=== PATIENT | male | born 1935 | race Caucasian/White ===

== ENCOUNTER 2016-11-26 16:15 | Inpatient (IN) | payer BC ==
[~2016-11-26] VITALS: Ht 160 cm; Wt 47.0 kg
[2016-11-26 18:18] LABS: ABNORMAL IP MESSAGE 1; BASOPHIL # 0.1 10^3/ul (0.0-0.1); BASOPHILS % 0.3 % (0.0-2.0); HEMATOCRIT 45.7 % (42.0-52.0); HEMOGLOBIN 15.1 g/dl (14.0-18.0); LYMPHOCYTES # 2.8 10^3/ul (0.8-2.9); LYMPHOCYTES % 16.8 % (15.0-51.0); MEAN CORPUSCULAR HEMOGLOBIN 28.5 pg (29.0-33.0); MEAN CORPUSCULAR VOLUME 86.4 fl (82.0-101.0); MEAN PLATELET VOLUME 10.5 fl (7.4-10.4); MONOCYTE # 1.8 10^3/ul (0.3-0.9); MONOCYTES % 10.5 % (0.0-11.0); NEUTROPHILS % 71.9 % (39.0-77.0); PLATELET COUNT 167 10^3/UL (140-415); POSITIVE DIFF @See below; RED BLOOD COUNT 5.29 10^6/ul (4.70-6.10); RED CELL DISTRIBUTION WIDTH 14.2 % (11.5-14.5); WHITE BLOOD COUNT 16.9 10^3/ul (4.8-10.8)
[2016-11-26 18:33] LABS: INR 1.03; PROTIME 13.5 Sec (12.2-14.2); PT RATIO 1.1
[2016-11-26 18:34] LABS: PARTIAL THROMBOPLASTIN TIME 34.5 Sec (25.0-35.0)
[2016-11-26] MEDS ORDERED: SODIUM CHLORIDE 0.9% 1L BAG IV* STA (18:38)
[2016-11-26] MEDS ORDERED: NIFE60TA7 PO (18:43)
[2016-11-26] MEDS ORDERED: FOLI-49 PO (18:43)
[2016-11-26] MEDS ORDERED: CHOL100062 PO (18:44)
[2016-11-26] MEDS ORDERED: HYDR25TA6 PO (18:44)
[2016-11-26 18:46] LABS: ALBUMIN 4.8 g/dl (3.3-4.9); ALBUMIN/GLOBULIN RATIO 1.29; BILIRUBIN,INDIRECT 2.6 mg/dl (0-1.1); BILIRUBIN,TOTAL 2.6 mg/dl (0.2-1.3); CALCIUM 9.2 mg/dl (8.4-10.2); CREATININE 1.71 mg/dl (0.61-1.24); POTASSIUM 3.2 mmol/L (3.5-5.1); TOTAL PROTEIN 8.5 g/dl (6.1-8.1)
[2016-11-26 18:58] LABS: TROPONIN-I 0.121 ng/ml (0.00-0.12)
[2016-11-26] MEDS ORDERED: POTASSIUM CHLORIDE 250 ML IVPB ONE (19:00)
[2016-11-26] MEDS ORDERED: ACETAMINOPHEN 500 MG TAB PO STA (19:02)
--- NOTE | 2016-11-26 19:02 | RADRPT ---
PROCEDURE: XR Chest. CLINICAL INDICATION: Pain . TECHNIQUE: Single frontal chest x-ray. COMPARISON: None. FINDINGS: The lungs are clear of acute infiltrates, edema, effusions, or masses. Calcific atherosclerosis of t he aorta is present.. The cardiomediastinal silhouette is unremarkable. The osseous structures are intact. IMPRESSION: No acute cardiopulmonary disease. RPTAT: JJ .Ludwig Perez MD, MD Date Time Electronically viewed and signed by .Ludwig Perez MD, MD on 11/26/2016 19:02 .L/
[2016-11-26 20:30] LABS: ADD UMIC YES; UR ASCORBIC ACID NEGATIVE (NEGATIVE); UR BACTERIA FEW /HPF (NONE SEEN); UR BILIRUBIN (Dip) NEGATIVE (NEGATIVE); UR BLOOD (Dip) 3+ mg/dL (NEGATIVE); UR CLARITY CLEAR (CLEAR); UR COLOR YELLOW (YELLOW); UR GLUCOSE (Dip) NEGATIVE (NEGATIVE); UR KETONES (Dip) NEGATIVE (NEGATIVE); UR LEUKOCYTE ESTERASE (Dip) NEGATIVE Leu/ul (NEGATIVE); UR MUCUS FEW /HPF (NONE SEEN); UR NITRITE (Dip) NEGATIVE (NEGATIVE); UR RBC 13 /HPF (0-5); UR SPECIFIC GRAVITY (Dip) 1.021 (1.003-1.030); UR TOTAL PROTEIN (Dip) 2+ mg/dl (NEGATIVE); UR UROBILINOGEN (Dip) NEGATIVE (NEGATIVE)
[2016-11-26] MEDS ORDERED: CEFTRIAXONE 1 GM/50 ML (PMX) 50 ML IVPB ONE (20:30)
--- NOTE | 2016-11-26 22:14 | RADRPT ---
PROCEDURE: CT Abdomen and Pelvis without contrast. CLINICAL INDICATION: Abdominal pain, fever. TECHNIQUE: A CT scan of the abdomen and pelvis was performed without intravenous contrast. Irby l and sagittal reformatted images were generated. Images were reviewed on a high-resolution PACS wor kstation. CTDIvol: 8.89 mGy. DLP: 454.50 mGy-cm. One or more of the following dose reduction techniques were used: - Automated exposure control. - Adjustment of the mA and/or kV according to patient size. - Use of iterative reconstruction technique. COMPARISON: None. FINDINGS: There are mild atelectatic changes in the lower lungs. Evaluation of the abdominal and pelvic viscera is limited by the lack of oral and intravenous contra st. There is a 2.4 cm cyst in the right hepatic lobe. The gallbladder is normal in appearance. The commo n bile duct is not dilated. The spleen is not enlarged. No pancreatic lesion is identified and there is no pancreatic ductal dilatation. The adrenal glands are unremarkable. The kidneys are normal in size. There is no perinephric fat stranding. No hydronephrosis is seen. No urinary stone is identified. There are cysts in both kidneys measuring up to 10.8 cm on the right. The small and large bowel are normal in caliber. There is no bowel wall thickening. The appendix is normal. The urinary bladder is unremarkable. The pelvic organs are within normal limits. No lymphadenopathy is identified. There is no ascites. No pneumoperitoneum is seen. There are mild a rterial calcifications. No suspicious osseous lesion is idenitified. There are bilateral L5 pars defects and grade 2-3 L5 an terolisthesis. Severe spinal canal stenosis and moderate to severe bilateral neural foraminal narrow ing are noted at L5-S1. IMPRESSION: 1. No inflammation, mass, or lymphadenopathy. 2. Normal appendix. 3. No obstructive uropathy or urinary stone. 4. Mild atherosclerotic arterial calcifications. 5. 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 Severe spinal canal stenosis and mod erate to severe bilateral neural foraminal narrowing are noted at L5-S1. RPTAT: HTAR .Leroy Rai MD, MD Date Time Electronically viewed and signed by .Leroy Rai MD, MD on 11/26/2016 22:14 .R/
[2016-11-26] MEDS ORDERED: SOD CHLORIDE 0.9% 1,000 ML IV SCH (22:15)
--- NOTE | 2016-11-26 22:21 | ERA ---
ER Documentation Chief Complaint Date/Time DATE: 11/26/16 TIME: 22:17 Chief Complaint generalized weakness x 2 days; decreased in appetite; no n/v/d complaint HPI This is a 81-year-old male who presents to the emergency room with his daughter for evaluation of generalized weakness. According to the daughter was giving the majority history this patient has had generalized weakness which is gotten progressively worse over the past 3 days. She states that he did feel hot today and he has had a decreased appetite. The patient denies any abdominal pain or chest pain or cough. Patient's daughter denies any aggravating or relieving factors for her symptoms. She brought him in for further evaluation. ROS All systems reviewed and are negative except as per history of present illness. Medications Home Meds Reported Medications Cholecalciferol* (Vitamin D3*) 1,000 Unit Tablet, 1000 UNIT PO DAILY, TAB 11/26/16 Hydrochlorothiazide* (Hydrochlorothiazide*) Unknown Strength Tab, 1 TAB PO DAILY , #30 TAB 11/26/16 Nifedipine* (Nifedipine ER*) 60 Mg Tablet.sa, 60 MG PO DAILY, TAB.SA 11/26/16 Folic Acid* (Folic Acid*) Unknown Strength Tablet, 1 TAB PO BID, TAB 11/26/16 Allergies Allergies: Coded Allergies: No Known Allergy (Unverified , 11/26/16) PMhx/Soc Medical and Surgical Hx: pt denies Surgical Hx Smoking Status: Former smoker Physical Exam Vitals Vital Signs Date Time Temp Pulse Resp B/P Pulse Ox O2 Delivery O2 Flow Rate FiO2 11/26/16 18:55 102.6 81 20 100/56 93 Room Air 11/26/16 18:00 Nasal Cannula 2 11/26/16 16:19 98.8 76 20 92/52 96 Physical Exam INITIAL VITAL SIGNS: Reviewed by me GENERAL: The patient is frail-appearing elderly gentleman, no acute distress HEENT: Dry mucous membranes, pupils equal, round, and reactive to light. EOMI. There is no scleral icterus. NECK: C-spine is soft and supple, there is no meningismus. There is no cervical lymphadenopathy. LUNGS: Clear to auscultation bilaterally. There are no rales, wheezes or rhonchi. HEART: Regular rate and rhythm, no murmurs, clicks, rubs or gallops. ABDOMEN: Soft, non-tender, non-distended. There are bowel sounds in all four quadrants. No rebound or guarding. EXTREMITIES: There is no peripheral cyanosis or edema. No focal swelling or erythema. NEUROLOGICAL: The patient moves all four extremities with 5/5 strength. Cranial nerves II - XII are intact. Normal gait. Alert and oriented SKIN: There is no apparent rash or petechiae. HEME/LYMPHATIC: There is no evidence of excessive bruising or lymphedema. PSYCHIATRIC: The patient does not appear anxious or depressed. Result Diagram: 11/26/16180911/26/161809 Results 24 hrs Laboratory Tests Test 11/26/16 18:10 11/26/16 19:30 11/26/16 19:45 11/26/16 21:34 White Blood Count 16.910^3/ul Red Blood Count 5.2910^6/ul Hemoglobin 15.1g/dl Hematocrit 45.7% Mean Corpuscular Volume 86.4fl Mean Corpuscular Hemoglobin 28.5pg Mean Corpuscular Hemoglobin Concent 33.0g/dl Red Cell Distribution Width 14.2% Platelet Count 65075^3/UL Mean Platelet Volume 10.5fl Neutrophils % 71.9% Lymphocytes % 16.8% Monocytes % 10.5% Eosinophils % 0.0% Basophils % 0.3% Nucleated Red Blood Cells % 0.0/100WBC Neutrophils # (Manual) 12.110^3/ul Lymphocytes # 2.810^3/ul Monocytes # 1.810^3/ul Eosinophils # 0.010^3/ul Basophils # 0.110^3/ul Nucleated Red Blood Cells # 0.010^3/ul Prothrombin Time 13.5Sec Prothrombin Time Ratio 1.1 INR International Normalized Ratio 1.03 Activated Partial Thromboplast Time 34.5Sec Sodium Level 139mmol/L Potassium Level 3.2mmol/L Chloride Level 91mmol/L Carbon Dioxide Level 33mmol/L Anion Gap 18 Blood Urea Nitrogen 34mg/dl Creatinine 1.71mg/dl Glucose Level 124mg/dl Calcium Level 9.2mg/dl Total Bilirubin 2.6mg/dl Direct Bilirubin 0.00mg/dl Indirect Bilirubin 2.6mg/dl Aspartate Amino Transf (AST/SGOT) 77IU/L Alanine Aminotransferase (ALT/SGPT) 43IU/L Alkaline Phosphatase 98IU/L Troponin I 0.121ng/ml Total Protein 8.5g/dl Albumin 4.8g/dl Globulin 3.70g/dl Albumin/Globulin Ratio 1.29 Lipase 135U/L Urine Color YELLOW Urine Clarity CLEAR Urine pH 5.0 Urine Specific [place] 1.021 Urine Ketones NEGATIVEmg/dL Urine Nitrite NEGATIVEmg/dL Urine Bilirubin NEGATIVEmg/dL Urine Urobilinogen NEGATIVEmg/dL Urine Leukocyte Esterase NEGATIVELeu/ul Urine Microscopic RBC 13/HPF Urine Microscopic WBC 2/HPF Urine Bacteria FEW/HPF Urine Mucus FEW/HPF Urine Hemoglobin 3+mg/dL Urine Glucose NEGATIVEmg/dL Urine Total Protein 2+mg/dl Lactic Acid Level 3.1mmol/L 1.4mmol/L Current Medications Medications (Trade) Dose Ordered Sig/Christina Route PRN Reason Start Time Stop Time Status Last Admin Dose Admin Sodium Chloride 2110 ml 2,110 ml BOLUS OVER 2 HOURS STAT IV* 11/26/16 18:38 11/26/16 18:41 DC 11/26/16 18:53 Potassium Chloride (KCl 40 MEQ/250 ML NS) 250 ml @ 62.5 mls/hr ONCE ONCE IVPB 11/26/16 19:00 11/26/16 22:59 Acetaminophen 1000 mg 1,000 mg ONCE STAT PO 11/26/16 19:02 11/26/16 19:03 DC 11/26/16 19:27 Ceftriaxone Sodium 50 ml @ 100 mls/hr ONCE ONCE IVPB 11/26/16 20:30 11/26/16 20:59 DC 11/26/16 20:30 Sodium Chloride (NS) 1,000 ml @ 80 mls/hr [id number] IV 11/26/16 22:15 11/27/16 10:44 Ondansetron HCl (Zofran Inj) 4 mg BRIDGE ORDER PRN IV NAUSEA AND/OR VOMITING 11/26/16 22:30 11/27/16 22:29 Acetaminophen (Tylenol Tab) 650 mg ER BRIDGE PRN PO MILD PAIN/FEVER 11/26/16 22:30 11/27/16 22:29 Procedures/MDM EKG: Rate/Rhythm: [Normal Sinus Rhythm] QRS, ST, T-waves: [No changes consistent w/ acute ischemia] Impression: [No evidence of ischemia or arrhythmia] Chest X-ray 1V Interpreted by me: Soft Tissue: No acute abnormalities Bones: No acute abnormalities Mediastinum/Cardiac Silhouette/Lungs: [No acute abnormalities] CT abdomen pelvis without contrast: No acute process This 81-year-old male presents to the emergency room for evaluation of generalized weakness. When I evaluated this patient he was febrile, and did appear to have a blood pressure of 88/61. Septic workup was initiated on this patient. He was given greater than 30 cc/kg of IV normal saline. His lab work does demonstrate a leukocytosis and lactic acid of 3. The patient's chest x- ray is clear, CT of the abdomen and pelvis is also without any acute process in his urinalysis does not reveal a gross urinary tract infection at this time. The patient was given 1 g Rocephin after blood and urine cultures were obtained. His repeat lactic acid is 1.8 and his repeat blood pressure is 133/ 61. He is afebrile after receiving Tylenol. This patient does meet SIRS criteria and given his age the patient will be placed in for admission at this time on the [facility] floor. His potassium was slightly low at 3.2 and he was given 40 mEq of potassium IV. He will be admitted under the care of Dr. Waterman Critical Care: Excluding all billable procedures Time: 43 minutes Treatments/Evaluations: Close monitoring and treatment of unstable vital signs, cardiorespiratory, and neurologic status, while maintaining tight balance of fluid, respiratory, and cardiac interventions. Departure Diagnosis: Primary Impression: SIRS (systemic inflammatory response syndrome) Additional Impressions: Generalized weakness Hypokalemia Mild dehydration Fever Condition: Fair LONDON COOK DO Nov 26, 2016 22:21
[2016-11-26] MEDS ORDERED: ACETAMINOPHEN 325 MG TAB PO PRN (22:30)
[2016-11-26] MEDS ORDERED: ONDANSETRON 4 MG INJ IV PRN (22:30)
[2016-11-27 01:15] LABS: INR 1.18; PROTIME 15.1 Sec (12.2-14.2); PT RATIO 1.2
[2016-11-27 01:16] LABS: PARTIAL THROMBOPLASTIN TIME 32.6 Sec (25.0-35.0)
[2016-11-27 04:00] VITALS: TEMP 101.9
[2016-11-27 05:05] VITALS: Ht 160 cm; Wt 47.0 kg
[2016-11-27] MEDS ORDERED: DEXTROSE 5%-0.45% NACL 1,000 ML IV SCH (05:30)
[2016-11-27] MEDS ORDERED: ONDANSETRON 4 MG INJ IV PRN (05:30)
[2016-11-27 05:59] LABS: BASOPHILS % 0.2 % (0.0-2.0); HEMOGLOBIN 12.9 g/dl (14.0-18.0); LYMPHOCYTES # 1.8 10^3/ul (0.8-2.9); MEAN CORPUSCULAR HEMOGLOBIN 28.7 pg (29.0-33.0); MEAN CORPUSCULAR HGB CONC 33.1 g/dl (32.0-37.0); MEAN CORPUSCULAR VOLUME 86.9 fl (82.0-101.0); MEAN PLATELET VOLUME 11.1 fl (7.4-10.4); MONOCYTE # 1.1 10^3/ul (0.3-0.9); MONOCYTES % 6.6 % (0.0-11.0); NEUTROPHILS % 81.6 % (39.0-77.0); PLATELET COUNT 151 10^3/UL (140-415); RED BLOOD COUNT 4.49 10^6/ul (4.70-6.10); RED CELL DISTRIBUTION WIDTH 14.1 % (11.5-14.5); WHITE BLOOD COUNT 16.2 10^3/ul (4.8-10.8)
[2016-11-27] MEDS ORDERED: LEVOFLOXACIN 500MG/D5W (PMX) 100 ML IVPB ONE (06:00)
[2016-11-27 06:26] LABS: ALBUMIN 3.5 g/dl (3.3-4.9); ALBUMIN/GLOBULIN RATIO 1.2; CALCIUM 8.3 mg/dl (8.4-10.2); CREATININE 1.22 mg/dl (0.61-1.24); POTASSIUM 3.3 mmol/L (3.5-5.1); TOTAL PROTEIN 6.4 g/dl (6.1-8.1)
[2016-11-27 06:46] VITALS: BP 105/56; RESP 20
[2016-11-27 08:14] VITALS: BP 114/58; RESP 16
[2016-11-27] MEDS: ACETAMINOPHEN 325 MG TAB PO PRN ×3 (08:19→23:52)
[2016-11-27] MEDS ORDERED: POTASSIUM CHLORIDE (SR) 20 MEQ TAB PO STA (08:51)
--- NOTE | 2016-11-27 09:00 | HP ---
Date/Time of Note Date/Time of Note DATE: 11/27/16 TIME: 08:51 Assessment/Plan VTE Prophylaxis VTE Prophylaxis Intervention: SCD's Lines/Catheters IV Catheter Type (from Nrs): Peripheral IV Assessment/Plan Assessment/Plan 1. SIRS, unknown source of infection -Urinalysis and a chest x-ray nondiagnostic -will empirically be started on IV antibiotic -Follow-up on the urine culture and blood culture 2. Generalized weakness and decreased appetite -Dietary consult -PT evaluation -Speech/swallow eval especially given patient being edentulous 3. Positive troponin -First troponin was slightly elevated but the second one has normalized. This is due to infectious process. See #1 -will send additional troponins. No chest pain -will order 2D echo, which will also be helpful, not just because his troponin is elevated but also since he will be receiving IV fluids given his septic presentation 4. Presumed AK I -Likely prerenal given poor p.o. intake -Continue IV fluid -Renal ultrasound and nephrology consult as needed 5. Hypokalemia -Replete HPI/ROS Admit Date/Time Admit Date/Time Nov 26, 2016 at 22:16 ROS This is an 81-year-old male with a history of hypertension was brought to the ER for generalized weakness. I tried to talk to patient through loan teller and I am not able to get meaningful information from him. He is also edentulous which makes it difficult to understand him. He did however stated he has headache. Reportedly patient was decreased appetite and on evaluation easily noticeable that he has muscle loss and he is somehow cachectic. When he presented to the ER he was febrile with a temperature as high as 102.6 with labs showing a WBC of 16,000. Initial urinalysis without UTI and a chest x -ray with no active disease. PMH/Family/Social Social History Smoking Status: Former smoker Exam/Review of Systems Vital Signs Vitals Vital Signs Date Time Temp Pulse Resp B/P Pulse Ox O2 Delivery O2 Flow Rate FiO2 11/27/16 08:14 101.6 73 16 114/58 91 11/27/16 05:05 Nasal Cannula 2.0 Intake and Output 11/26/16 11/26/16 11/27/16 15:00 23:00 07:00 Intake Total 2160 ml 890 ml Balance 2160 ml 890 ml Exam Constitutional: other (Appears somehow weak. He is edentulous and difficult to understand) Head: atraumatic, normocephalic Eyes: EOMI, PERRL Respiratory: clear to auscultation, normal air movement Cardiovascular: nl pulses, regular rate and rhythm Gastrointestinal: non-tender, soft Musculoskeletal: other (Muscle wasting) Extremities: normal pulses Labs Result Diagram: 11/27/16 0534 11/27/16 0534 Medications Medications Current Medications Sodium Chloride (NS) 1,000 ml @ 80 mls/hr [id number] IV Last administered on 11/26 23:11; Admin Dose 80 MLS/HR; Start 11/26/16 at 22:15; Stop 11/27/16 at 10: 44 Ondansetron HCl 4 mg 4 mg Q6H PRN IV NAUSEA AND/OR VOMITING; Start 11/27/16 at 05:30 Dextrose/Sodium Chloride (D5-1/2ns) 1,000 ml @ 100 mls/hr Q10H IV Last administered on 11/27/16 06:13; Admin Dose 100 MLS/HR; Start 11/27/16 at 05:30 Acetaminophen 650 mg 650 mg Q6H PRN PO PAIN AND OR ELEVATED TEMP Last administered on 11/27/16 08:19; Admin Dose 650 MG; Start 11/27/16 at 06:00 Levofloxacin/ Dextrose (Levaquin 250 Mg/ D5W 50 ml (Pmx)) 50 ml @ 50 mls/hr Q24H IVPB ; Start 11/28/16 at 06:00 NIALL GARCIA MD Nov 27, 2016 09:00
[2016-11-27] MEDS: D5W-0.45 NACL + KCL 20 MEQ 1,000 ML IV SCH ×2 (13:02→23:40)
[2016-11-27 14:00] VITALS: BP 156/64; RESP 18
--- NOTE | 2016-11-27 16:19 | RADRPT ---
Echocardiogram Report Patient Name: ALESSANDRO VARGAS Gender: Male Date: 1935 Study Date: 27-Nov-2016 Networking Specialist: Fabiola [facility] Location: [facility] Ref. Physician: NIALL GARCIA Quality: Technically Difficult Study Procedures: Transthoracic echocardiogram with complete 2D, M-Mode, and doppler examination. Indications: Positive Troponin. 2D/M Mode Doppler Measurement Value Normal Ranges Measurement Value Normal Ranges LVIDd 2D 4.5 3.5 - 5.6 cm AV Peak Jarad 1.6 m/sec LVIDs 2D 3.1 2.1 - 4.1 cm AV Peak PG 10.0 mmHg FS 2D 32.2 % AI Peak PG 38.0 mmHg LVPWd 2D 1.0 0.6 - 1.1 cm AI Peak Jarad 3.1 m/sec IVSd 2D 1.1 0.6 - 1.1 cm AI PHT 548.0 msec IVS/LVPW 2D 1.1 LVOT Peak Jarad 1.3 m/sec AoR Diam 2D 2.7 2.0 - 3.7 cm LVOT Peak PG 7.0 mmHg LA/Ao 2D 1 0 - 1 MV E Peak Jarad 0.9 m/sec EDV 2D 93.0 cm3 MV A Peak Jarad 0.7 m/sec ESV 2D 28.9 cm3 MV E/A 1.3 LA Dimen 2D 3.6 2.3 - 4.0 cm MV Decel Time 151 msec MV E/A 1.3 TR Peak Jarad 3.0 m/sec TR Peak PG 37.0 mmHg RVSP 45.0 mmHg Findings Left Ventricle: Normal left ventricular systolic function. Normal left ventricular cavity size. Normal left ventricular wall thickness. Ejection fraction is visually estimated at 6065 %. Tissue Doppler/Mitral Doppler indices are consistent with impaired relaxation (Stage I diastolic dysfunction). Right Ventricle: Normal right ventricular size. Normal right ventricular systolic function. Left Atrium: The left atrium is normal in size. Right Atrium: The right atrium is normal in size. Mitral Valve: Mild mitral leaflet calcification. Mild mitral annular calcification. Mild mitral valve regurgitation. Aortic Valve: Aortic cusps appear mildly calcified. Trace aortic valve regurgitation. Tricuspid Valve: Normal appearance of the tricuspid valve. Estimated peak PA systolic pressure 45 mmHg. There is mild tricuspid regurgitation. Pulmonic Valve: Pulmonic valve not well visualized. There is mild pulmonic regurgitation. Pericardium: Normal pericardium with no significant pericardial effusion. Aorta: Normal aortic root. IVC: Normal size and poor respiratory collapse consistent with elevated right atrial pressure. Conclusions 1.The left ventricle is normal in size and systolic function. 2.Estimated left ventricular ejection fraction of 60-65%. 3.Grade 1 diastolic dysfunction. Electronically Signed By: Isaiah Altman 27-Nov-2016 16:19:15 -0700 Patient Name: ALESSANDRO VARGAS Study Date: 27-Nov-2016 [id number]
[2016-11-27 20:22] VITALS: BP 146/67; RESP 20
[2016-11-28 02:25] VITALS: BP 121/65; RESP 20
[2016-11-28 05:25] LABS: BASOPHILS % 0.2 % (0.0-2.0); HEMATOCRIT 37.8 % (42.0-52.0); HEMOGLOBIN 12.7 g/dl (14.0-18.0); LYMPHOCYTES # 2.3 10^3/ul (0.8-2.9); LYMPHOCYTES % 19.5 % (15.0-51.0); MEAN CORPUSCULAR HEMOGLOBIN 29.3 pg (29.0-33.0); MEAN CORPUSCULAR HGB CONC 33.6 g/dl (32.0-37.0); MEAN CORPUSCULAR VOLUME 87.1 fl (82.0-101.0); MEAN PLATELET VOLUME 11.6 fl (7.4-10.4); MONOCYTE # 0.8 10^3/ul (0.3-0.9); MONOCYTES % 6.7 % (0.0-11.0); NEUTROPHIL # 8.7 10^3/ul (1.6-7.5); PLATELET COUNT 127 10^3/UL (140-415); RED BLOOD COUNT 4.34 10^6/ul (4.70-6.10); RED CELL DISTRIBUTION WIDTH 13.8 % (11.5-14.5)
[2016-11-28 05:49] LABS: ALBUMIN 3.1 g/dl (3.3-4.9); ALBUMIN/GLOBULIN RATIO 1.24; BILIRUBIN,INDIRECT 1.9 mg/dl (0-1.1); BILIRUBIN,TOTAL 1.9 mg/dl (0.2-1.3); CALCIUM 8.3 mg/dl (8.4-10.2); CREATININE 0.98 mg/dl (0.61-1.24); POTASSIUM 3.3 mmol/L (3.5-5.1); TOTAL PROTEIN 5.6 g/dl (6.1-8.1)
[2016-11-28] MEDS ORDERED: LEVOFLOXACIN 250MG/D5W (PMX) 50 ML IVPB SCH (06:00)
[2016-11-28] MEDS: POTASSIUM CHLORIDE 20 MEQ in SOD CHLORIDE 0.9% 100 ML IVPB ONE ×2 (07:46→09:06)
[2016-11-28 08:00] VITALS: BP 141/76; RESP 19
[2016-11-28] MEDS: D5W-0.45 NACL + KCL 20 MEQ 1,000 ML IV SCH ×2 (08:30→13:46)
[2016-11-28] MEDS ORDERED: POTASSIUM CHLORIDE (SR) 20 MEQ TAB PO STA (10:10)
[2016-11-28] MEDS ORDERED: VANCOMYCIN 1 GM in NS 250 ML IVPB SCH (10:30)
[2016-11-28] MEDS ORDERED: VANCOMYCIN IV PER PHARMACY XX SCH (10:30)
[2016-11-28] MEDS: ACETAMINOPHEN 325 MG TAB PO PRN (10:50)
[2016-11-28 14:00] VITALS: BP 146/69; RESP 19
--- NOTE | 2016-11-28 14:46 | PN ---
Date/Time of Note Date/Time of Note DATE: 11/28/16 TIME: 14:33 Assessment/Plan VTE Prophylaxis VTE Prophylaxis Intervention: SCD's Lines/Catheters IV Catheter Type (from Nrs): Peripheral IV Assessment/Plan Chief Complaint/Hosp Course 1. Sepsis secondary to gram-positive cocci in the blood-improving -1/2 blood cultures positive, follow-up on culture specifics -ID consultation obtained -DC Levaquin and start vancomycin 2. Generalized weakness and decreased appetite secondary to above -Continue vancomycin IV -Dietary consult -PT evaluation -Speech/swallow eval 3. Positive troponin-resolved -Has no chest pain, echo shows a preserved EF 4. Prerenal acute kidney injury secondary to dehydration-resolved with IV fluids -Continue IV fluid 5. Hypokalemia -Replete Prophylaxis: SCDs Problems: Subjective 24 Hr Interval Summary Constitutional: disoriented Exam/Review of Systems Vital Signs Vitals Vital Signs Date Time Temp Pulse Resp B/P Pulse Ox O2 Delivery O2 Flow Rate FiO2 11/28/16 08:00 99.3 62 19 141/76 99 11/27/16 21:00 Nasal Cannula 2.0 Intake and Output 11/27/16 11/27/16 11/28/16 15:00 23:00 07:00 Intake Total 600 ml 960 ml 1585 ml Output Total 200 ml Balance 600 ml 760 ml 1585 ml Exam Psych: confusion Respiratory: clear to auscultation Cardiovascular: regular rate and rhythm Gastrointestinal: soft, No distended Musculoskeletal: nl extremities to inspection Results Result Diagram: 11/28/16 0453 11/28/16 0453 Results 24 hrs Laboratory Tests Test 11/27/16 16:38 11/28/16 04:53 Lactic Acid Level 2.5 *H 1.2 White Blood Count 12.0 #H Red Blood Count 4.34 L Hemoglobin 12.7 L Hematocrit 37.8 L Mean Corpuscular Volume 87.1 Mean Corpuscular Hemoglobin 29.3 Mean Corpuscular Hemoglobin Concent 33.6 Red Cell Distribution Width 13.8 Platelet Count 127 L Mean Platelet Volume 11.6 H Neutrophils % 73.0 Lymphocytes % 19.5 Monocytes % 6.7 Eosinophils % 0.0 Basophils % 0.2 Nucleated Red Blood Cells % 0.0 Neutrophils # 8.7 H Lymphocytes # 2.3 Monocytes # 0.8 Eosinophils # 0.0 Basophils # 0.0 Nucleated Red Blood Cells # 0.0 Sodium Level 132 L Potassium Level 3.3 L Chloride Level 94 L Carbon Dioxide Level 32 H Anion Gap 9 Blood Urea Nitrogen 15 # Creatinine 0.98 Glucose Level 112 Calcium Level 8.3 L Total Bilirubin 1.9 H Direct Bilirubin 0.00 Indirect Bilirubin 1.9 H Aspartate Amino Transf (AST/SGOT) 74 H Alanine Aminotransferase (ALT/SGPT) 51 Alkaline Phosphatase 58 Troponin I 0.059 Total Protein 5.6 L Albumin 3.1 L Globulin 2.50 Albumin/Globulin Ratio 1.24 Medications Medications Current Medications Ondansetron HCl (Zofran Inj) 4 mg Q6H PRN IV NAUSEA AND/OR VOMITING; Start at 05:30 Acetaminophen 650 mg 650 mg Q6H PRN PO PAIN AND OR ELEVATED TEMP Last administered on 11/28/16 10:50; Admin Dose 650 MG; Start 11/27/16 at 06:00 Potassium Chloride/Dextrose/ Sod Cl 1,000 ml @ 100 mls/hr Q10H IV Last administered on 11/28/16 13:46; Admin Dose 100 MLS/HR; Start 11/27/16 at 12:30 Vancomycin HCl (Vancocin) 100 ml @ 100 mls/hr Q24H IVPB ; Start 11/29/16 at 10: 30 PIPER SEALS Nov 28, 2016 14:44
[2016-11-28 20:40] VITALS: BP 149/81; RESP 20
[2016-11-29] MEDS: D5W-0.45 NACL + KCL 20 MEQ 1,000 ML IV SCH ×3 (00:13→11:05)
[2016-11-29 02:32] VITALS: BP 129/73; RESP 20
[2016-11-29 06:04] LABS: BASOPHILS % 0.2 % (0.0-2.0); EOSINOPHILS % 0.1 % (0.0-7.0); HEMATOCRIT 35.6 % (42.0-52.0); HEMOGLOBIN 12.3 g/dl (14.0-18.0); LYMPHOCYTES # 1.8 10^3/ul (0.8-2.9); LYMPHOCYTES % 19.6 % (15.0-51.0); MEAN CORPUSCULAR HEMOGLOBIN 29.6 pg (29.0-33.0); MEAN CORPUSCULAR HGB CONC 34.6 g/dl (32.0-37.0); MEAN CORPUSCULAR VOLUME 85.8 fl (82.0-101.0); MEAN PLATELET VOLUME 11.7 fl (7.4-10.4); MONOCYTE # 0.6 10^3/ul (0.3-0.9); NEUTROPHIL # 6.7 10^3/ul (1.6-7.5); NEUTROPHILS % 72.3 % (39.0-77.0); PLATELET COUNT 123 10^3/UL (140-415); RED BLOOD COUNT 4.15 10^6/ul (4.70-6.10); RED CELL DISTRIBUTION WIDTH 13.7 % (11.5-14.5); WHITE BLOOD COUNT 9.2 10^3/ul (4.8-10.8)
[2016-11-29 06:18] LABS: CALCIUM 7.8 mg/dl (8.4-10.2); CREATININE 0.9 mg/dl (0.61-1.24); POTASSIUM 3.8 mmol/L (3.5-5.1)
[2016-11-29 07:54] VITALS: BP 131/62; RESP 18
[2016-11-29] MEDS: VANCOMYCIN 500MG/NS (PMX) 100 ML IVPB SCH (11:05)
[2016-11-29 13:57] VITALS: BP 158/70; RESP 18
[2016-11-29] MEDS: D5-NS + KCL 20 MEQ 1,000 ML IV SCH (16:38)
--- NOTE | 2016-11-29 18:25 | PN ---
Date/Time of Note Date/Time of Note DATE: 11/29/16 TIME: 18:23 Assessment/Plan VTE Prophylaxis VTE Prophylaxis Intervention: SCD's Lines/Catheters IV Catheter Type (from Nrs): Peripheral IV Assessment/Plan Chief Complaint/Hosp Course 1. Sepsis secondary possibly to staph-patient continues to have fevers -1/2 blood cultures positive for staph, follow-up on repeat blood cultures drawn today -ID consultation obtained, MRI of lumbar spine to evaluate for discitis -Continue vancomycin 2. Generalized weakness and decreased appetite secondary to above -Continue vancomycin IV -Dietary consult -PT evaluation -Speech/swallow eval 3. Positive troponin-resolved -Has no chest pain, echo shows a preserved EF 4. Prerenal acute kidney injury secondary to dehydration-resolved with IV fluids -Continue IV fluid 5. Hypokalemia -Repleted Prophylaxis: SCDs Problems: Subjective 24 Hr Interval Summary Subjective hx not possible: pt non-verbal Exam/Review of Systems Vital Signs Vitals Vital Signs Date Time Temp Pulse Resp B/P Pulse Ox O2 Delivery O2 Flow Rate FiO2 11/29/16 13:57 99.7 51 18 158/70 98 11/29/16 08:00 Nasal Cannula 2.0 Intake and Output 11/28/16 11/28/16 11/29/16 15:00 23:00 07:00 Intake Total 1065 ml 500 ml 1180 ml Balance 1065 ml 500 ml 1180 ml Exam Constitutional: non-verbal Respiratory: clear to auscultation Cardiovascular: regular rate and rhythm Gastrointestinal: soft, No distended Musculoskeletal: nl extremities to inspection Results Result Diagram: 11/29/16 0512 11/29/16 0512 Results 24 hrs Laboratory Tests Test 11/29/16 05:12 White Blood Count 9.2 # Red Blood Count 4.15 L Hemoglobin 12.3 L Hematocrit 35.6 L Mean Corpuscular Volume 85.8 Mean Corpuscular Hemoglobin 29.6 Mean Corpuscular Hemoglobin Concent 34.6 Red Cell Distribution Width 13.7 Platelet Count 123 L Mean Platelet Volume 11.7 H Neutrophils % 72.3 Lymphocytes % 19.6 Monocytes % 7.0 Eosinophils % 0.1 Basophils % 0.2 Nucleated Red Blood Cells % 0.0 Neutrophils # 6.7 Lymphocytes # 1.8 Monocytes # 0.6 Eosinophils # 0.0 Basophils # 0.0 Nucleated Red Blood Cells # 0.0 Sodium Level 127 L Potassium Level 3.8 Chloride Level 94 L Carbon Dioxide Level 31 Anion Gap 6 L Blood Urea Nitrogen 12 Creatinine 0.90 Glucose Level 114 Calcium Level 7.8 L Medications Medications Current Medications Ondansetron HCl (Zofran Inj) 4 mg Q6H PRN IV NAUSEA AND/OR VOMITING; Start at 05:30 Acetaminophen 650 mg 650 mg Q6H PRN PO PAIN AND OR ELEVATED TEMP Last administered on 11/28/16 10:50; Admin Dose 650 MG; Start 11/27/16 at 06:00 Vancomycin HCl 100 ml @ 100 mls/hr Q24H IVPB Last administered on 11/29/16 11 :05; Admin Dose 100 MLS/HR; Start 11/29/16 at 10:30 Potassium Chloride/Dextrose/ Sod Cl (D5-NS + KCl 20 Meq) 1,000 ml @ 100 mls/hr Q10H IV Last administered on 11/29/16 16:38; Admin Dose 100 MLS/HR; Start at 16:30 PIPER SEALS Nov 29, 2016 18:25
[2016-11-29 20:00] VITALS: BP 146/70; RESP 18
[2016-11-29] MEDS: ACETAMINOPHEN 325 MG TAB PO PRN (21:04)
--- NOTE | 2016-11-29 21:33 | PN ---
DATE: 11/29/2016 SUBJECTIVE DATA: No acute events overnight. The patient is lying comfortably in bed. He is afebrile. He is awake, answering questions, but confused about time, daughter at bedside. T-max 99.7. LABORATORY AND DIAGNOSTIC DATA: WBC 9.2, H and H 12.3 and 35.6, platelets 123, neutrophils 72.3, BUN 12 and creatinine 0.90, and sodium 127. MICROBIOLOGY: Blood culture growing Staph species. Urine culture negative. Influenza swab negative. DIAGNOSTICS: CT of the abdomen and pelvis on admission revealed no inflammation, mass, or lymphadenopathy. No obstructive uropathy or urinary stone. Bilateral L5 pars defect and grade 2- 3 L5 . Severe spinal canal stenosis and moderate to severe bilateral neural foraminal narrowing noted at L5, S1. Chest x-ray revealed no acute cardiopulmonary disease. The patient had 2D echo done that revealed ejection fraction of 60-65 percent with grade 1 diastolic dysfunction. ANTIMICROBIALS: The patient was started on vancomycin. PHYSICAL EXAMINATION: GENERAL: This is a fragile, cachectic elderly man, who is awake and in no distress. HEENT: Head atraumatic, normocephalic. Sclerae anicteric. Buccal mucosa dry. NECK: Supple. CHEST: Chest rise symmetrical. Breath sounds clear. HEART: S1, S2. ABDOMEN: Soft, bowel sounds present. EXTREMITIES: Without cyanosis. ASSESSMENT: 1. Sepsis with fevers, leukocytosis and lactic acidosis on admission. 2. Staph bacteremia possibly contaminant, rule out infectious process in the spine. 3. Grade 1 diastolic dysfunction. 4. Lumbar stenosis. PLAN: 1. The patient remains stable. 2. White blood cell count tracing down. 3. Lactic acid yesterday went down to 1.2. 4. We are going to keep him on IV vancomycin. 5. We will await for repeat blood cultures. 6. Order MRI of lumbar spine. 7. Check chest x-ray in a.m. Dictated By: Tomi Eubanks NP /berna/petty /Document#: [id number]
[2016-11-30 02:12] VITALS: BP 158/74; RESP 18
[2016-11-30] MEDS: D5-NS + KCL 20 MEQ 1,000 ML IV SCH ×4 (02:33→23:20)
[2016-11-30 06:20] LABS: BASOPHILS % 0.4 % (0.0-2.0); EOSINOPHILS % 0.6 % (0.0-7.0); HEMOGLOBIN 12.5 g/dl (14.0-18.0); LYMPHOCYTES % 27.1 % (15.0-51.0); MEAN CORPUSCULAR HEMOGLOBIN 28.9 pg (29.0-33.0); MEAN CORPUSCULAR HGB CONC 32.9 g/dl (32.0-37.0); MEAN CORPUSCULAR VOLUME 87.8 fl (82.0-101.0); MEAN PLATELET VOLUME 12.8 fl (7.4-10.4); MONOCYTE # 0.6 10^3/ul (0.3-0.9); MONOCYTES % 8.9 % (0.0-11.0); NEUTROPHIL # 4.5 10^3/ul (1.6-7.5); PLATELET COUNT 141 10^3/UL (140-415); RED BLOOD COUNT 4.33 10^6/ul (4.70-6.10); RED CELL DISTRIBUTION WIDTH 13.9 % (11.5-14.5); WHITE BLOOD COUNT 7.2 10^3/ul (4.8-10.8)
[2016-11-30 06:54] LABS: CALCIUM 8.3 mg/dl (8.4-10.2); CREATININE 0.91 mg/dl (0.61-1.24); POTASSIUM 4.2 mmol/L (3.5-5.1)
[2016-11-30 07:54] VITALS: BP 175/76; PULSE 50
[2016-11-30] MEDS: VANCOMYCIN 500MG/NS (PMX) 100 ML IVPB SCH (11:30)
[2016-11-30 14:20] VITALS: BP 102/62; RESP 18
[2016-11-30] MEDS: AMLODIPINE 5 MG TAB PO SCH (14:29)
[2016-11-30 14:33] VITALS: BP 156/71; PULSE 45
--- NOTE | 2016-11-30 15:02 | PN ---
Date/Time of Note Date/Time of Note DATE: 11/30/16 TIME: 15:00 Assessment/Plan VTE Prophylaxis VTE Prophylaxis Intervention: SCD's Lines/Catheters IV Catheter Type (from Nrs): Peripheral IV Assessment/Plan Chief Complaint/Hosp Course 1. Sepsis secondary possibly to staph although this may be contamination -No further fevers today -1/2 blood cultures positive for staph, follow-up on repeat blood cultures drawn today -ID consultation obtained, MRI of lumbar spine cannot be done secondary to questionable hardware in patient's body, have obtained CT lumbar spine to evaluate for infectious process -Continue vancomycin 2. Generalized weakness and decreased appetite secondary to above -Continue vancomycin IV -Dietary consult -PT evaluation -Speech/swallow eval 3. Positive troponin-resolved -Has no chest pain, echo shows a preserved EF 4. Prerenal acute kidney injury secondary to dehydration-resolved with IV fluids -Continue IV fluid 5. Hypokalemia -Repleted Prophylaxis: SCDs Problems: Subjective 24 Hr Interval Summary Subjective hx not possible: pt non-verbal Exam/Review of Systems Vital Signs Vitals Vital Signs Date Time Temp Pulse Resp B/P Pulse Ox O2 Delivery O2 Flow Rate FiO2 11/30/16 14:33 45 156/71 Nasal Cannula 11/30/16 14:20 98.2 18 90 11/30/16 01:42 2.0 Intake and Output 11/29/16 11/29/16 11/30/16 15:00 23:00 07:00 Intake Total 720 ml 510 ml 1200 ml Balance 720 ml 510 ml 1200 ml Exam Constitutional: alert Psych: confusion Respiratory: clear to auscultation Cardiovascular: regular rate and rhythm Gastrointestinal: soft, No distended Musculoskeletal: nl extremities to inspection Results Result Diagram: 11/30/16 0514 11/30/16 0514 Results 24 hrs Laboratory Tests Test 11/30/16 05:14 White Blood Count 7.2 # Red Blood Count 4.33 L Hemoglobin 12.5 L Hematocrit 38.0 L Mean Corpuscular Volume 87.8 Mean Corpuscular Hemoglobin 28.9 L Mean Corpuscular Hemoglobin Concent 32.9 Red Cell Distribution Width 13.9 Platelet Count 141 Mean Platelet Volume 12.8 H Neutrophils % 62.0 Lymphocytes % 27.1 Monocytes % 8.9 Eosinophils % 0.6 Basophils % 0.4 Nucleated Red Blood Cells % 0.0 Neutrophils # 4.5 Lymphocytes # 2.0 Monocytes # 0.6 Eosinophils # 0.0 Basophils # 0.0 Nucleated Red Blood Cells # 0.0 Sodium Level 132 L Potassium Level 4.2 Chloride Level 97 Carbon Dioxide Level 31 Anion Gap 8 Blood Urea Nitrogen 11 Creatinine 0.91 Glucose Level 99 Lactic Acid Level 1.1 Calcium Level 8.3 L Medications Medications Current Medications Ondansetron HCl (Zofran Inj) 4 mg Q6H PRN IV NAUSEA AND/OR VOMITING; Start at 05:30 Acetaminophen 650 mg 650 mg Q6H PRN PO PAIN AND OR ELEVATED TEMP Last administered on 11/29/16 21:04; Admin Dose 650 MG; Start 11/27/16 at 06:00 Potassium Chloride/Dextrose/ Sod Cl 1,000 ml @ 100 mls/hr Q10H IV Last administered on 11/30/16 13:39; Admin Dose 100 MLS/HR; Start 11/29/16 at 16:30 Vancomycin HCl (Vancocin) 100 ml @ 100 mls/hr Q24H IVPB ; Start 12/01/16 at 11: 30 Miscellaneous Information (*Rx Drug Level Order Reminder*) VANCOMYCIN TROUGH AT 1030 ONCE ONCE XX ; Start 12/01/16 at 10:30; Stop 12/01/16 at 10:31 Amlodipine Besylate (Norvasc) 5 mg DAILY PO Last administered on 11/30/16 14: 29; Admin Dose 5 MG; Start 11/30/16 at 14:00 PIPER SEALS Nov 30, 2016 15:02
--- NOTE | 2016-11-30 16:38 | CONS ---
Date/Time of Note Date/Time of Note DATE: 11/30/16 TIME: 16:38 Assessment/Plan Assessment/Plan Chief Complaint/Hosp Course ID PROGRESS NOTE CURRENT ABX: =>Vanco IV 24H INTERVAL SUMMARY * Clinically stable, awake, appears weak, no fevers, VSS * BCx (+)Staph Epi 1/2 bottles on admission = likely skin bacteria contaminant * BLOOD CULTURE Final BCULT GRAM BOTTLE 1 Gram positive cocci in pairs and clusters . seen on gram stain of the broth Organism 1 COAGULASE NEGATIVE STAPH EXAM GEN: VSS, NAD HEENT: Unremarkable NECK: supple CVS: RRR CHEST: Equal chest rise bilaterally without dyspnea on observation ABD: Soft, NT, EXT: warm SKIN: No rash, no diaphoresis ID ASSESSMENT 81 yo M admit with: 1. Sepsis with fevers, leukocytosis and lactic acidosis on admission=> resolved * Etiology unclear, possible aspiration pneumonitis without full blown PNA ? 2. Staph bacteremia probably skin contaminant 3. Grade 1 diastolic dysfunction. 4. Lumbar stenosis. INVASIVES: PIV ABX ALLERGY: KNDA CURRENT ABX: =>Vanco IV ID RECOMMENDATIONS 1. Check ESR & CRP in am, if normal would DC ABX and observe * If Mildly elevated, change ABX to Bactrim DS 1 TAB PO BID x 5 days and DC home * if ESR elevated near 70 would pursue concern of spine infection, not clear at this time. . Problems: Consultation Date/Type/Reason Admit Date/Time Nov 26, 2016 at 22:16 Initial Consult Date Exam/Review of Systems Vital Signs Vitals Vital Signs Date Time Temp Pulse Resp B/P Pulse Ox O2 Delivery O2 Flow Rate FiO2 11/30/16 14:33 45 156/71 Nasal Cannula 11/30/16 14:20 98.2 18 90 11/30/16 08:40 2.0 Intake and Output 11/29/16 11/29/16 11/30/16 15:00 23:00 07:00 Intake Total 720 ml 510 ml 1200 ml Balance 720 ml 510 ml 1200 ml Results Result Diagram: 11/30/16 0514 11/30/16 0514 Results 24 hrs Laboratory Tests Test 11/30/16 05:14 White Blood Count 7.2 # Red Blood Count 4.33 L Hemoglobin 12.5 L Hematocrit 38.0 L Mean Corpuscular Volume 87.8 Mean Corpuscular Hemoglobin 28.9 L Mean Corpuscular Hemoglobin Concent 32.9 Red Cell Distribution Width 13.9 Platelet Count 141 Mean Platelet Volume 12.8 H Neutrophils % 62.0 Lymphocytes % 27.1 Monocytes % 8.9 Eosinophils % 0.6 Basophils % 0.4 Nucleated Red Blood Cells % 0.0 Neutrophils # 4.5 Lymphocytes # 2.0 Monocytes # 0.6 Eosinophils # 0.0 Basophils # 0.0 Nucleated Red Blood Cells # 0.0 Sodium Level 132 L Potassium Level 4.2 Chloride Level 97 Carbon Dioxide Level 31 Anion Gap 8 Blood Urea Nitrogen 11 Creatinine 0.91 Glucose Level 99 Lactic Acid Level 1.1 Calcium Level 8.3 L Medications Medications Current Medications Ondansetron HCl (Zofran Inj) 4 mg Q6H PRN IV NAUSEA AND/OR VOMITING; Start at 05:30 Acetaminophen 650 mg 650 mg Q6H PRN PO PAIN AND OR ELEVATED TEMP Last administered on 11/29/16 21:04; Admin Dose 650 MG; Start 11/27/16 at 06:00 Potassium Chloride/Dextrose/ Sod Cl 1,000 ml @ 100 mls/hr Q10H IV Last administered on 11/30/16 13:39; Admin Dose 100 MLS/HR; Start 11/29/16 at 16:30 Vancomycin HCl (Vancocin) 100 ml @ 100 mls/hr Q24H IVPB ; Start 12/01/16 at 11: 30 Miscellaneous Information (*Rx Drug Level Order Reminder*) VANCOMYCIN TROUGH AT 1030 ONCE ONCE XX ; Start 12/01/16 at 10:30; Stop 12/01/16 at 10:31 Amlodipine Besylate (Norvasc) 5 mg DAILY PO Last administered on 11/30/16 14: 29; Admin Dose 5 MG; Start 11/30/16 at 14:00 CATRACHITA RICH NP Nov 30, 2016 16:38
[2016-11-30 16:55] VITALS: BP 160/75; PULSE 48
--- NOTE | 2016-11-30 17:21 | RADRPT ---
PROCEDURE: XR Chest. CLINICAL INDICATION: Pneumonia TECHNIQUE: A single AP view of the chest was obtained. COMPARISON: Chest x-ray dated 11/26/2016 FINDINGS: Lung volumes are low with compressive changes and crowding of the central pulmonary vascular marking s with right basilar atelectasis . No focal airspace opacity, pleural effusion or pneumothorax is se en. The cardiomediastinal silhouette is within normal limits for size. Calcifications are seen wit hin the aortic arch. The osseous structures demonstrate multiple healed right posterior lateral rib fractures. IMPRESSION: 1. Low lung volumes with compressive changes and right basilar atelectasis. No significant interval change. 2. Aortic atherosclerosis. RPTAT: HH .Elizabet Tanner MD, MD Date Time Electronically viewed and signed by .Elizabet Tanner MD, on 11/30/2016 17:21 .G/
[2016-11-30 20:26] VITALS: BP 127/60; RESP 16
[2016-11-30] MEDS: ACETAMINOPHEN 325 MG TAB PO PRN (21:58)
[2016-12-01 02:14] VITALS: BP 118/60; RESP 18
[2016-12-01 05:40] LABS: BASOPHILS % 0.2 % (0.0-2.0); EOSINOPHILS # 0.1 10^3/ul (0.0-0.5); EOSINOPHILS % 1.2 % (0.0-7.0); HEMOGLOBIN 12.5 g/dl (14.0-18.0); LYMPHOCYTES # 1.5 10^3/ul (0.8-2.9); LYMPHOCYTES % 18.1 % (15.0-51.0); MEAN CORPUSCULAR HEMOGLOBIN 29.7 pg (29.0-33.0); MEAN CORPUSCULAR HGB CONC 33.8 g/dl (32.0-37.0); MEAN CORPUSCULAR VOLUME 87.9 fl (82.0-101.0); MEAN PLATELET VOLUME 11.7 fl (7.4-10.4); MONOCYTE # 0.7 10^3/ul (0.3-0.9); MONOCYTES % 8.2 % (0.0-11.0); NEUTROPHIL # 6.1 10^3/ul (1.6-7.5); NEUTROPHILS % 71.7 % (39.0-77.0); PLATELET COUNT 150 10^3/UL (140-415); RED BLOOD COUNT 4.21 10^6/ul (4.70-6.10); RED CELL DISTRIBUTION WIDTH 14.1 % (11.5-14.5); WHITE BLOOD COUNT 8.4 10^3/ul (4.8-10.8)
[2016-12-01 06:25] LABS: CALCIUM 8.3 mg/dl (8.4-10.2); CREATININE 0.91 mg/dl (0.61-1.24)
[2016-12-01 08:15] VITALS: BP 159/73; RESP 16
--- NOTE | 2016-12-01 09:02 | RADRPT ---
PROCEDURE: CT scan of the lumbar spine without intravenous contrast. CLINICAL INDICATION: Back pain, evaluate for infectious process. TECHNIQUE: Routine CT scan of the lumbar spine was performed without intravenous contrast on a hig h-resolution multi detector scanner. One or more of the following dose reduction techniques were use d: Automated exposure control; Adjustment of the mA and/or kV according to patient size; Use of iter ative reconstruction technique. CTDI = 21 mGy. DLP = 640 mGy-cm. COMPARISON: CT abdomen pelvis 11/26/2016 FINDINGS: Alignment: Straightening of the lumbar lordosis with 1 mm retrolisthesis L2-L3, 4 mm retrolisthesis L4-L5. 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 Vertebrae: Vertebral body height is maintained throughout. Mineralization appears decreased throug hout the lumbar spine and visualized pelvis. No evidence of osteolytic endplate changes are seen. Examination of the individual levels demonstrates: L1-L2: Mild loss of disc height with 3 mm diffuse disc bulge. Rostral caudal facet subluxation with minimal bilateral facet arthropathy without ligamentum hypertrophy. Central canal is patent. Mild s tenosis of both lateral recesses. Severe bilateral neural foraminal stenosis. L2-L3: Moderate loss of disc height with approximately 2 mm diffuse disc bulge. Rostral caudal face t subluxation with minimal facet arthropathy without ligamentum hypertrophy. Central canal is patent . Possible minimal lateral recess stenosis bilaterally. Moderate - severe bilateral neural foraminal stenosis. L3-L4: Mild loss of disc height with 1 mm diffuse disc bulge. Minimal bilateral facet arthropathy wi thout ligamentum hypertrophy. Central canal is patent. Minimal angular stenosis of both lateral rece sses. Mild bilateral neural foraminal stenosis. L4-L5: Moderate loss of disc height with at least 3.5 mm diffuse disc bulge. Rostral caudal facet s ubluxation with mild facet arthropathy. Central canal appears patent. Lateral recesses not well visu alized. Severe bilateral neural foraminal stenosis. L5-S1: Severe loss of disc height, anterolisthesis, dorsal disc uncovering are present. Rostral cau [place] facet subluxation with bilateral pars interarticularis defects with moderate facet arthropathy. Moderate - severe central canal stenosis asymmetrically involving the right subarticular region. Sev ere right and mild left lateral recess stenosis. Severe bilateral neural foraminal stenosis. Paraspinous soft tissues: Within normal limits. Visualized abdomen: Numerous bilateral renal cysts are again partially visualized. Mildly distended urinary bladder. Mild atherosclerotic changes of the abdominal aorta. 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 Moderate - severe central canal stenosis L5-S1 secondary to 15 mm anterolisthesis from bilateral par s interarticularis defects. No CT evidence of osteomyelitis is observed. RPTAT: AADD .Robi Justin MD, Date Time Electronically viewed and signed by .Robi Justin MD, MD on 12/01/2016 09:02 .B/
[2016-12-01] MEDS: AMLODIPINE 5 MG TAB PO SCH (09:33)
[2016-12-01] MEDS: D5-NS + KCL 20 MEQ 1,000 ML IV SCH ×3 (09:51→22:34)
[2016-12-01] MEDS ORDERED: VANCOMYCIN 500MG/NS (PMX) 100 ML IVPB SCH (11:30)
[2016-12-01 14:00] VITALS: BP 146/67; RESP 16
--- NOTE | 2016-12-01 18:47 | PN ---
Date/Time of Note Date/Time of Note DATE: 12/01/16 TIME: 18:41 Assessment/Plan VTE Prophylaxis VTE Prophylaxis Intervention: SCD's Lines/Catheters IV Catheter Type (from Nrs): Peripheral IV Assessment/Plan Chief Complaint/Hosp Course 1. SIRS-source of infection unclear may be viral syndrome -ESR and CRP within normal limits -Previous positive culture likely contamination, repeat cultures negative after 2 days -He does continue to have fevers today -ID consultation appreciated, CT of lumbar spine shows no infectious process MRI unable to be done as patient appears to have hardware in his knees -Continue vancomycin for now 2. Generalized weakness and decreased appetite-possibly secondary to worsening dementia versus viral syndrome -Continue vancomycin IV -Dietary consult -PT evaluation -Speech/swallow eval 3. Positive troponin-resolved -Has no chest pain, echo shows a preserved EF 4. Prerenal acute kidney injury secondary to dehydration-resolved with IV fluids -Continue IV fluid 5. Hypokalemia -Repleted Prophylaxis: SCDs Problems: Subjective 24 Hr Interval Summary Subjective hx not possible: pt non-verbal Exam/Review of Systems Vital Signs Vitals Vital Signs Date Time Temp Pulse Resp B/P Pulse Ox O2 Delivery O2 Flow Rate FiO2 12/01/16 14:00 99.5 53 16 146/67 96 12/01/16 08:00 Nasal Cannula 2.0 Intake and Output 11/30/16 11/30/16 12/01/16 15:00 23:00 07:00 Intake Total 1170 ml 660 ml 1650 ml Output Total 250 ml Balance 1170 ml 660 ml 1400 ml Exam Constitutional: non-verbal Respiratory: clear to auscultation Cardiovascular: regular rate and rhythm Gastrointestinal: soft, No distended Musculoskeletal: nl extremities to inspection Results Result Diagram: 12/01/16 0458 12/01/16 0458 Results 24 hrs Laboratory Tests Test 12/01/16 04:58 12/01/16 10:35 White Blood Count 8.4 Red Blood Count 4.21 L Hemoglobin 12.5 L Hematocrit 37.0 L Mean Corpuscular Volume 87.9 Mean Corpuscular Hemoglobin 29.7 Mean Corpuscular Hemoglobin Concent 33.8 Red Cell Distribution Width 14.1 Platelet Count 150 Mean Platelet Volume 11.7 H Neutrophils % 71.7 Lymphocytes % 18.1 Monocytes % 8.2 Eosinophils % 1.2 Basophils % 0.2 Nucleated Red Blood Cells % 0.0 Neutrophils # 6.1 Lymphocytes # 1.5 Monocytes # 0.7 Eosinophils # 0.1 Basophils # 0.0 Nucleated Red Blood Cells # 0.0 Erythrocyte Sedimentation Rate 9 Sodium Level 134 L Potassium Level 4.0 Chloride Level 101 Carbon Dioxide Level 29 Anion Gap 8 Blood Urea Nitrogen 10 Creatinine 0.91 Glucose Level 101 Calcium Level 8.3 L C-Reactive Protein < 0.5 Vancomycin Level Trough < 5.0 L Medications Medications Current Medications Ondansetron HCl (Zofran Inj) 4 mg Q6H PRN IV NAUSEA AND/OR VOMITING; Start at 05:30 Acetaminophen 650 mg 650 mg Q6H PRN PO PAIN AND OR ELEVATED TEMP Last administered on 11/30/16 21:58; Admin Dose 650 MG; Start 11/27/16 at 06:00 Potassium Chloride/Dextrose/ Sod Cl 1,000 ml @ 100 mls/hr Q10H IV Last administered on 12/01/16 09:51; Admin Dose 100 MLS/HR; Start 11/29/16 at 16:30 Vancomycin HCl (Vancocin) 100 ml @ 100 mls/hr Q24H IVPB Last administered on 11:22; Admin Dose 100 MLS/HR; Start 12/01/16 at 11:30; Stop 12/01/16 at 19:00 Amlodipine Besylate 5 mg 5 mg DAILY PO Last administered on 12/01/16 09:33; Admin Dose 5 MG; Start 11/30/16 at 14:00 Vancomycin HCl/ Sodium Chloride (Vancocin/NS) 150 ml @ 75 mls/hr Q12H IVPB ; Start 12/01/16 at 23:00 PIPER SEALS Dec 01, 2016 18:47
[2016-12-01 21:11] VITALS: BP 117/58; RESP 20
[2016-12-01] MEDS: VANCOMYCIN 750 MG in SOD CHLORIDE 0.9% 150 ML IVPB SCH (23:15)
[2016-12-02 02:15] VITALS: BP 129/67; RESP 18
[2016-12-02 06:19] LABS: BASOPHILS % 0.2 % (0.0-2.0); EOSINOPHILS # 0.1 10^3/ul (0.0-0.5); HEMATOCRIT 36.5 % (42.0-52.0); HEMOGLOBIN 12.4 g/dl (14.0-18.0); LYMPHOCYTES # 2.4 10^3/ul (0.8-2.9); LYMPHOCYTES % 29.3 % (15.0-51.0); MEAN CORPUSCULAR HEMOGLOBIN 29.7 pg (29.0-33.0); MEAN CORPUSCULAR VOLUME 87.5 fl (82.0-101.0); MEAN PLATELET VOLUME 11.6 fl (7.4-10.4); MONOCYTE # 0.9 10^3/ul (0.3-0.9); MONOCYTES % 10.8 % (0.0-11.0); NEUTROPHIL # 4.7 10^3/ul (1.6-7.5); NEUTROPHILS % 58.2 % (39.0-77.0); PLATELET COUNT 203 10^3/UL (140-415); RED BLOOD COUNT 4.17 10^6/ul (4.70-6.10); RED CELL DISTRIBUTION WIDTH 13.9 % (11.5-14.5)
[2016-12-02 06:49] LABS: CALCIUM 8.3 mg/dl (8.4-10.2); CREATININE 0.86 mg/dl (0.61-1.24); POTASSIUM 3.9 mmol/L (3.5-5.1)
[2016-12-02 07:12] VITALS: BP 157/72; RESP 18
[2016-12-02] MEDS: AMLODIPINE 5 MG TAB PO SCH (08:39)
[2016-12-02] MEDS: VANCOMYCIN 750 MG in SOD CHLORIDE 0.9% 150 ML IVPB SCH (10:27)
[2016-12-02] MEDS ORDERED: LEVOFLOXACIN 500 MG TAB PO ONE (12:30)
[2016-12-02] MEDS ORDERED: LEVOFLOXACIN 500 MG TAB PO SCH (13:30)
[2016-12-02 14:00] VITALS: BP 117/70; RESP 18
--- NOTE | 2016-12-02 14:01 | PDOCDIS ---
Discharge Instructions DIAGNOSIS Discharge Diagnosis SIRS UTI Debility CONDITION Patient Condition: Fair HOME CARE INSTRUCTIONS: Special Diet: PUREED ACTIVITY: Activity Restrictions: Special Program FOLLOW UP/APPOINTMENTS Follow-up Plan Discharge this nursing facility RADHA RYAN MD Dec 02, 2016 14:01
--- NOTE | 2016-12-02 15:14 | RADRPT ---
PROCEDURE: XR Chest. CLINICAL INDICATION: Chest pain TECHNIQUE: AP view of the chest was performed. COMPARISON: 11/30/2016 FINDINGS: There are low lung volumes. Bibasilar atelectasis is present. Suggestion of a hazy airspace opacity in the left lower lobe which may represent a developing consolidation. The heart size is normal. Th e osseous structures are intact. IMPRESSION: Low lung volumes. Bibasilar atelectasis. Suggestion of a hazy airspace opacity in the left lower lobe which may represent a developing consol idation. RPTAT: QQ .Estela Unger MD, Date Time Electronically viewed and signed by .Estela Unger MD, on 12/02/2016 15:14 .M/
[2016-12-02] MEDS: D5-NS + KCL 20 MEQ 1,000 ML IV SCH (15:36)
--- NOTE | 2016-12-02 16:10 | PN ---
DATE: 12/02/2016 SUBJECTIVE DATA: The patient is lying comfortably in bed. He is awake, in no distress. No fevers. LABORATORY DATA: WBC 8, no shift, no bands. BUN 12 and creatinine 0.86. DIAGNOSTICS: Lumbar spine CT revealed multilevel discogenic disease throughout the lumbar spine with bilateral severe neural foraminal stenosis. Moderate to severe central canal stenosis. L5-S1 secondary to 15 mm anterior listhesis from bilateral pars intra-articular defects. No CT evidence of osteomyelitis. Chest x-ray on November 30 revealed right basilar atelectasis. MICROBIOLOGY: Blood culture on admission grew coag-negative staph species with repeat blood cultures being negative. ANTIMICROBIALS: The patient had been on vancomycin since November 28. PHYSICAL EXAMINATION: GENERAL: Fragile, elderly man in no distress. HEENT: Head atraumatic, normocephalic. Sclerae anicteric. Buccal mucosa dry. NECK: Supple. CHEST: Chest rise symmetrical. Breath sounds diminished at the bases. HEART: S1, S2. ABDOMEN: Soft, bowel sounds present. EXTREMITIES: Without cyanosis. ASSESSMENT: 1. Resolving sepsis with fevers, leukocytosis and encephalopathy, etiology unclear. So far, blood culture 1 set on admission grew coag-negative staph species, repeat blood cultures negative. 2. Right basilar atelectasis, questionable pneumonia. 3. Severe foraminal stenosis of the lumbar spine without evidence of osteomyelitis as per CT of the lumbar spine. 4. Grade 1 diastolic dysfunction. PLAN: 1. The patient remains stable. 2. We are going to discontinue vancomycin. 3. Start him on oral Levaquin. 4. Repeat chest x-ray in a.m. 5. Continue present care. 6. Consider physical therapy. Dictated By: Tomi Eubanks NP /berna/petty /Document#: [id number]
[2016-12-02 19:23] VITALS: BP 126/55; RESP 20
--- NOTE | 2016-12-02 21:57 | DS ---
DATE OF ADMISSION: 11/26/2016 DATE OF DISCHARGE: 12/02/2016 JET BLADE POLISHER: Infectious Disease. PROCEDURE: 2D echocardiogram showed ejection fraction 60-65 percent. Left ventricle was normal in size. Grade 1 diastolic dysfunction. DISCHARGE DIAGNOSES: 1. Systemic inflammatory response syndrome (SIRS) likely viral. ESR and CRP within normal limits. Previous positive culture, likely contamination. 2. Generalized weakness with decreased appetite. 3. Bacteremia with positive cocci in pairs and clusters. Sensitive to Levaquin. 4. Essential hypertension. Well controlled on medical management. 5. Positive troponin resolve. The patient denies any chest pain. Echo showed normal ejection fraction. 6. Acute renal insufficiency, dehydration resolved. 7. Hypokalemia, repleted. 8. Hyponatremia, resolved. 9. Anemia, stable. 10. Thrombocytopenia, resolved. 11. Stage I diastolic dysfunction. MEDICATIONS: 1. Levaquin. 2. Vitamin D. 3. Folic acid. 4. Nifedipine. ALLERGIES: NO KNOWN DRUG ALLERGIES. HOSPITAL COURSE: This is an 81-year-old gentleman with past medical history of essential hypertension, debility, who used to ambulate with a walker. He was brought into the emergency room of [facility] secondary to having generalized weakness. The patient used to ambulate with a walker although he has not been able to ambulate and he has been needing maximum assistance. He was also found to have a fever, temperature 102.6. WBC 16,000. Initial urinalysis with UTI. Chest x-ray no active disease. Infectious Disease doctor was consulted. Blood culture was positive for coagulase-negative Staph, sensitive to Levaquin. The patient has been seen and evaluated with physical therapy and still max assist. After discussing the finding with the patient's daughter at the bedside it was agreed to transfer the patient and disposition to [facility] facility with oral antibiotics and IV fluids. At this time the patient is medically stable to be discharged to a [facility] facility for physical therapy and speech therapy. LABS: WBC 8.0, hemoglobin 12.4, hematocrit 36.5, and platelet 203. Sodium 133, potassium 3.9, chloride 99, bicarb 28, BUN 12, creatinine 0.86, glucose 104, calcium 8.3. C-reactive protein normal at 3.5, lactic acid 1.1. PHYSICAL EXAMINATION: VITAL SIGNS: Temperature 98.0, pulse 54, respirations 18, blood pressure of 107/67, oxygen saturation 95 percent on room air. Dictated By: Ming Monique MD /berna/petty /Document#: [id number]
[2016-12-03] MEDS ORDERED: LEVOFLOXACIN 250 MG TAB PO SCH (06:00)
== END 2016-12-02 20:30 | DRG 865 ==
LOC: E/R 16:15 → MS2 22:16
PROVIDERS: ADMIT Internal Medicine; ATTEND Internal Medicine
DX: B34.9 Viral infection, unspecified (principal); G93.40 Encephalopathy, unspecified; N17.9 Acute kidney failure, unspecified; R64 Cachexia; E87.2 Acidosis; E86.0 Dehydration; D69.6 Thrombocytopenia, unspecified; Z68.1 Body mass index [BMI] 19.9 or less, adult; J98.11 Atelectasis; R78.81 Bacteremia; E87.6 Hypokalemia; R79.9 Abnormal finding of blood chemistry, unspecified; Z87.891 Personal history of nicotine dependence; M48.06 Spinal stenosis, lumbar region; I51.89 Other ill-defined heart diseases; I10 Essential (primary) hypertension; B95.8 Unspecified staphylococcus as the cause of diseases classified elsewhere
CPT/HCPCS: 36415; 71010; 72131; 74176; 80048; 80053; 80202; 81001; 83605; 83690; 83735; 84100; 84484; 85025; 85610; 85651; 85730; 86140; 87040; 87086; 87400; 92526; 92610; 93005; 93306; 96365; 96366; 96367; 97110; 97116; 97162; A4310; J0696; J1956; J3370; J3480; J7030; J7042

== ENCOUNTER 2018-11-02 11:39 | Inpatient (IN) | payer BC ==
[~2018-11-02] VITALS: Ht 157.5 cm; Wt 49.3 kg
[~2018-11-02 11:39] MED LIST: AMLO-145 PO; CHOL100062 PO; FOLI-49 PO; TRAM50TA PO
[2018-11-02] MEDS ORDERED: ACETAMINOPHEN 325 MG TAB PO ONE (13:30)
[2018-11-02] MEDS ORDERED: ONDANSETRON (ODT) 4 MG TAB ODT STA (15:37)
[2018-11-02] MEDS ORDERED: HYDROCODONE/APAP (5/325) TAB PO ONE (16:00)
[2018-11-02] MEDS ORDERED: NACL 0.9% 3 ML SYG IV SCH (17:30)
[2018-11-02] MEDS ORDERED: morphine 2 MG INJ IV PRN (17:30)
[2018-11-02] MEDS ORDERED: ONDANSETRON 4 MG INJ IV PRN (17:30)
[2018-11-02] MEDS ORDERED: hydrALAzine 20 MG INJ IV PRN (17:30)
[2018-11-02] MEDS ORDERED: ACETAMINOPHEN 325 MG TAB PO PRN (17:30)
[2018-11-02 19:30] VITALS: Ht 157.5 cm; Wt 49.3 kg
[2018-11-02 20:00] VITALS: BP 173/85; PULSE 63; RESP 18
[2018-11-02 20:30] VITALS: BP 150/81
[2018-11-02] MEDS: HYDROCODONE/APAP (5/325) TAB PO PRN (22:01)
[2018-11-03 02:00] VITALS: BP 170/81; PULSE 55; RESP 18
[2018-11-03 08:00] VITALS: BP 196/90; PULSE 63; RESP 17
[2018-11-03] MEDS: AMLODIPINE 5 MG TAB PO SCH (08:47)
[2018-11-03] MEDS: ENOXAPARIN 40 MG/0.4 ML SYG SC SCH (08:47)
[2018-11-03 09:54] VITALS: BP 135/73; PULSE 62
[2018-11-03 14:12] VITALS: BP 145/70; PULSE 77; RESP 18
[2018-11-03] MEDS: HYDROCODONE/APAP (5/325) TAB PO PRN (18:40)
[2018-11-03 20:00] VITALS: BP 155/80; PULSE 81; RESP 18
[2018-11-03] MEDS: POLYETHYLENE GLYCOL 17 GM PACKET PO SCH (20:24)
[2018-11-04 02:00] VITALS: BP 126/73; PULSE 71; RESP 18
[2018-11-04 08:00] VITALS: BP 158/78; PULSE 69; RESP 19
[2018-11-04] MEDS: HYDROCODONE/APAP (5/325) TAB PO PRN (08:52)
[2018-11-04] MEDS: AMLODIPINE 5 MG TAB PO SCH (08:52)
[2018-11-04] MEDS: POLYETHYLENE GLYCOL 17 GM PACKET PO SCH ×2 (08:52→21:10)
[2018-11-04] MEDS: ENOXAPARIN 40 MG/0.4 ML SYG SC SCH (08:53)
[2018-11-04 14:00] VITALS: BP 115/72; PULSE 80; RESP 19
[2018-11-04] MEDS: DEXTROSE 5%-0.45% NACL 1,000 ML IV SCH (18:56)
[2018-11-04 20:00] VITALS: BP 140/70; PULSE 67; RESP 18
[2018-11-05] VITALS (15 sets, daily range): BP systolic 110–166; BP diastolic 60–86; PULSE 57–71; RESP 16–23
[2018-11-05] MEDS: DEXTROSE 5%-0.45% NACL 1,000 ML IV SCH ×2 (08:20→09:44)
[2018-11-05] MEDS: POLYETHYLENE GLYCOL 17 GM PACKET PO SCH ×2 (09:00→21:07)
[2018-11-05] MEDS: ENOXAPARIN 40 MG/0.4 ML SYG SC SCH (09:00)
[2018-11-05] MEDS: AMLODIPINE 5 MG TAB PO SCH ×2 (09:00→22:07)
[2018-11-05] MEDS ORDERED: SEVOFLURANE 15 MIN ONE (16:00)
[2018-11-05] MEDS ORDERED: PHENYLephrine (100 MCG/ML) 10ML SYG ONE (16:00)
[2018-11-05] MEDS ORDERED: EPHEDrine 25 MG/5 ML SYG ONE (16:00)
[2018-11-05] MEDS ORDERED: GLYCOPYRROLATE 0.4 MG INJ ONE (16:00)
[2018-11-05] MEDS ORDERED: DEXAMETHASONE 4 MG/ML 5 ML INJ ONE (16:21)
[2018-11-05] MEDS ORDERED: MIDAZOLAM 1 MG/ML 2 ML INJ ONE (16:21)
[2018-11-05] MEDS ORDERED: FENTAnyl 50 MCG/ML VIAL ONE (16:21)
[2018-11-05] MEDS ORDERED: ONDANSETRON 4 MG INJ ONE (16:21)
[2018-11-05] MEDS ORDERED: PROPOFOL 20 ML ONE (16:21)
[2018-11-05] MEDS ORDERED: CEFAZOLIN 1 GM INJ ONE (16:21)
[2018-11-05] MEDS ORDERED: LIDOCAINE 2% (SDV) 5 ML INJ ONE (16:21)
[2018-11-05] MEDS ORDERED: POLYMYXIN/BACITRACIN 1L IRRIG ONE (16:45)
[2018-11-05] MEDS ORDERED: NACL 0.9% 3 ML SYG IV SCH (18:00)
[2018-11-05] MEDS ORDERED: FENTAnyl 50 MCG/ML VIAL IV PRN (18:00)
[2018-11-05] MEDS ORDERED: ONDANSETRON 4 MG INJ IV PRN (18:00)
[2018-11-06] VITALS (16 sets, daily range): BP systolic 108–152; BP diastolic 62–80; PULSE 52–73; RESP 12–38
[2018-11-06] MEDS: DEXTROSE 5%-0.45% NACL 1,000 ML IV SCH ×2 (03:20→11:00)
[2018-11-06] MEDS: POLYETHYLENE GLYCOL 17 GM PACKET PO SCH ×2 (08:47→22:55)
[2018-11-06] MEDS: AMLODIPINE 5 MG TAB PO SCH (08:47)
[2018-11-06] MEDS: ENOXAPARIN 40 MG/0.4 ML SYG SC SCH (08:47)
[2018-11-06] MEDS ORDERED: PROPOFOL 40 ML ONE (15:44)
[2018-11-06] MEDS ORDERED: FENTAnyl 50 MCG/ML VIAL ONE (15:44)
[2018-11-06] MEDS ORDERED: CEFAZOLIN 1 GM INJ ONE (15:44)
[2018-11-06] MEDS ORDERED: ROPIVACAINE 0.2% 20 ML VIAL ONE (16:12)
[2018-11-06] MEDS ORDERED: HETASTARCH 6% NACL 500 ML ONE (16:31)
[2018-11-06] MEDS ORDERED: POLYMYXIN/BACITRACIN 1L IRRIG ONE (16:59)
[2018-11-06] MEDS ORDERED: HYDROmorphONE 1 MG/5 ML IV SYRINGE IV PRN ×2 (20:30)
[2018-11-06] MEDS ORDERED: NALBUPHINE HCL (10 MG/1 ML) INJ IV PRN (20:30)
[2018-11-06] MEDS ORDERED: ONDANSETRON 4 MG INJ IV PRN ×2 (20:30)
[2018-11-06] MEDS ORDERED: HYDROmorphONE 0.5 MG/0.5 ML SYG IV PRN ×2 (20:30)
[2018-11-06] MEDS ORDERED: NALOXONE (0.4 MG/ML) INJ IV PRN (20:30)
[2018-11-06] MEDS ORDERED: OXYCODONE/ACETAMINOPHEN (5/325) TAB PO PRN (20:30)
[2018-11-06] MEDS ORDERED: HYDROCODONE/APAP (5/325) TAB PO PRN ×2 (20:30→21:00)
[2018-11-06] MEDS ORDERED: EPHEDrine 25 MG/5 ML SYG IV PRN (20:30)
[2018-11-06] MEDS ORDERED: morphine 2 MG INJ IV PRN ×2 (20:30)
[2018-11-06] MEDS ORDERED: FENTAnyl 50 MCG/ML VIAL IV PRN ×2 (20:30)
[2018-11-06] MEDS ORDERED: MEPERIDINE 25 MG INJ IV PRN (20:30)
[2018-11-06] MEDS ORDERED: LABETALOL HCL 20MG INJ IV PRN (20:30)
[2018-11-06] MEDS ORDERED: ACETAMINOPHEN 500 MG TAB PO PRN (20:30)
[2018-11-06] MEDS ORDERED: DIPHENHYDRAMINE 50 MG INJ IV PRN ×2 (20:30)
[2018-11-06] MEDS ORDERED: hydrALAzine 20 MG INJ IV PRN (20:30)
[2018-11-06] MEDS ORDERED: SOD CHLORIDE 0.9% 1,000 ML IV SCH (20:59)
[2018-11-06] MEDS ORDERED: NACL 0.9% 3 ML SYG IV SCH (21:00)
[2018-11-06] MEDS: morphine 4 MG/ML VIAL IV PRN (22:55)
[2018-11-06] MEDS: CEFAZOLIN 1 GM/50 ML (PMX) 50 ML IVPB SCH (22:55)
[2018-11-07] MEDS: DEXTROSE 5%-0.45% NACL 1,000 ML IV SCH ×2 (01:10→13:40)
[2018-11-07 02:00] VITALS: BP 151/70; PULSE 75; RESP 17
[2018-11-07] MEDS: CEFAZOLIN 1 GM/50 ML (PMX) 50 ML IVPB SCH ×2 (05:09→13:04)
[2018-11-07 08:00] VITALS: BP 164/71; PULSE 63; RESP 2; RESP 20
[2018-11-07] MEDS: AMLODIPINE 5 MG TAB PO SCH (08:39)
[2018-11-07] MEDS: POLYETHYLENE GLYCOL 17 GM PACKET PO SCH ×2 (08:40→21:25)
[2018-11-07] MEDS: morphine 4 MG/ML VIAL IV PRN (08:41)
[2018-11-07] MEDS: ENOXAPARIN 40 MG/0.4 ML SYG SC SCH (08:50)
[2018-11-07] MEDS ORDERED: POTASSIUM CHLORIDE (SR) 20 MEQ TAB PO STA (11:09)
[2018-11-07] MEDS ORDERED: NA PHOSPHATE/BIPHOS 133 ML ENEMA PR PRN (11:30)
[2018-11-07] MEDS ORDERED: BISACODYL (EC) 5 MG TAB PO PRN (11:30)
[2018-11-07 14:00] VITALS: BP 142/67; PULSE 87; RESP 18
[2018-11-07 20:00] VITALS: BP 142/66; PULSE 87; RESP 17
[2018-11-08 02:00] VITALS: BP 117/59; PULSE 75; RESP 17
[2018-11-08 08:06] VITALS: BP 123/67; PULSE 78; RESP 16
[2018-11-08] MEDS: ENOXAPARIN 40 MG/0.4 ML SYG SC SCH (08:22)
[2018-11-08] MEDS: AMLODIPINE 5 MG TAB PO SCH (08:22)
[2018-11-08] MEDS: POLYETHYLENE GLYCOL 17 GM PACKET PO SCH (08:22)
[2018-11-08 14:42] VITALS: BP 129/75; PULSE 87; RESP 16
== END 2018-11-08 18:29 | disposition home health service (06) | DRG 494 ==
LOC: FTE 11:39 → PP2 16:00
PROVIDERS: ADMIT Internal Medicine; ATTEND Family Medicine
PROC: 0QSH04Z Reposition Left Tibia with Internal Fixation Device, Open Approach (ICD-10-PCS; 2018-11-06)
PROC: 0QSK04Z Reposition Left Fibula with Internal Fixation Device, Open Approach (ICD-10-PCS; principal; 2018-11-06 16:00)
DX: S82.452A Displaced comminuted fracture of shaft of left fibula, initial encounter for closed fracture (principal); S82.302A Unspecified fracture of lower end of left tibia, initial encounter for closed fracture; I10 Essential (primary) hypertension; D72.829 Elevated white blood cell count, unspecified; W18.39XA Other fall on same level, initial encounter
CPT/HCPCS: 36415; 71045; 73590; 73610; 80048; 80061; 83036; 83735; 84100; 84484; 85014; 85018; 85025; 85610; 85730; 93005; 93306; 97110; 97162; 97530; C1713; J0690; J1100; J1170; J1650; J2250; J2270; J2370; J2405; J2795; J3010; J7030; J7042